=== PATIENT | male | born 1995 | race Caucasian/White ===

== ENCOUNTER 2024-04-13 14:03 | Emergency (ER) | payer OTHER, SELFPAY ==
[2024-04-13 14:28] VITALS: BP 127/88
[2024-04-13 14:50] LABS: % Basophils 0.5 % (0-2); % Eosinophils 1.9 % (0-6); % Immature Granulocytes 0.6 % (0-0.5); % Lymphocytes 6.3 % (20.5-51.1); % Monocytes 4.1 % (1.7-9.3); % Neutrophils 86.6 % (42.2-75.2); Absolute Basophils 0.1 10^3/uL (0-0.2); Absolute Eosinophils 0.4 10^3/uL (0-0.7); Absolute Immature Granulocytes 0.1 10^3/uL (0-0.05); Absolute Lymphocytes 1.2 10^3/uL (1.2-3.4); Absolute Monocytes 0.8 10^3/uL (0.1-0.6); Absolute Neutrophils 16.6 10^3/uL (1.4-6.5); Hematocrit 50.6 % (39.0-52.0); Hemoglobin 17.6 g/dL (13.0-18.0); Mean Corp Hgb Conc. 34.8 g/dL (33.0-37.0); Mean Corpuscular Volume 86.2 fL (80.0-94.0); Mean Platelet Volume 8.8 fL (7.4-10.4); Nucleated Red Blood Cells % 0 % (-); Platelet Count 282 10^3/uL (130-400); Red Blood Cell Count 5.87 10^6/uL (4.70-6.10); Red Cell Dist. Width 12.6 % (11.5-14.5); White Blood Cell Count 19.2 10^3/uL (4.8-10.8)
[2024-04-13 15:07] LABS: ALT (SGPT) 49 U/L (0-50); AST (SGOT) 37 U/L (17-59); Albumin 5.5 g/dl (3.5-5.0); Alkaline Phosphatase 104 U/L (38-126); Blood Urea Nitrogen 21 mg/dl (9-20); Calcium 10.1 mg/dl (8.4-10.2); Carbon Dioxide 20 mmol/L (22-30); Chloride 105 mmol/L (98-107); Glucose 134 mg/dl (70-99); Potassium 3.9 mmol/L (3.5-5.1); Sodium 141 mmol/L (135-145); Total Bilirubin 1.6 mg/dl (0.2-1.3); Total Protein 8.5 g/dl (6.3-8.2); eGFR > 60.00
--- NOTE | 2024-04-13 17:35 | ED.GENMED ---
History of Present Illness
General
Chief Complaint: Abdominal Symptoms
Source: patient
Exam Limitations: none
Time Seen by Provider: 04/13/24 17:21
History of Present Illness
History of Present Illness:
28-year-old male presents with onset of vomiting diarrhea and abdominal discomfort about an hour after taking Augmentin. He was prescribed Augmentin for a sinus infection. He took a dose of Augmentin last week on an empty stomach and had a similar
reaction. He figured it was from not eating prior to taking the medicine. He denies fevers or chills. No known sick contacts. He states since waiting in the waiting room the nausea has improved. He is now tolerating and sipping Gatorade with
water. No other complaints at this time
Phy Exam
Physical Exam
Physical Exam:
General: Well-developed male no acute respiratory distress
HEENT: Normocephalic atraumatic
Heart: Tachycardic but regular no murmurs
Lungs: Clear no wheeze
Abdomen is soft nontender nondistended
Extremities: No cyanosis
Course
Orders/Labs/Results
Orders:
Orders
04/13/24 14:35
CMP [Comprehensive Metabolic Panel] Urgent
Complete Blood Count/With Diff Urgent
04/13/24 17:35
0.9% Sodium Chloride 1000 ml [Nss] 1,000 ml IV BOLUS
Ondansetron Injectable [Zofran] 4 mg IV NOW STA
04/13/24 19:15
Norovirus by PCR Urgent
[facility] Source: Feces/Stool
Specimen Description:
Date Specimen was Collected: 04/13/24
Time Specimen was Collected: 19:12
STOOL [C difficile Antigen & Toxins] Urgent
[facility] Source: Feces/Stool
Specimen Description:
Date Specimen was Collected: 04/13/24
Time Specimen was Collected: 19:12
Stool Culture Urgent
[facility] Source: Feces/Stool
Specimen Description:
Date Specimen was Collected: 04/13/24
Time Specimen was Collected: 19:12
Abnormal Lab Results
04/13/24
14:35
WBC 19.2 H 10^3/uL
(4.8-10.8)
Abs Immat Gran (auto) 0.1 H 10^3/uL
(0-0.05)
Absolute Neuts (auto) 16.6 H 10^3/uL
(1.4-6.5)
Absolute Monos (auto) 0.8 H 10^3/uL
(0.1-0.6)
Immature Gran % 0.6 H %
(0-0.5)
Neutrophils % 86.6 H %
(42.2-75.2)
Lymphocytes % 6.3 L %
(20.5-51.1)
Carbon Dioxide 20 L mmol/L
(22-30)
BUN 21 H mg/dl
(9-20)
Glucose 134 H mg/dl
(70-99)
Total Bilirubin 1.6 H mg/dl
(0.2-1.3)
Total Protein 8.5 H g/dl
(6.3-8.2)
Albumin 5.5 H g/dl
(3.5-5.0)
04/13/24 14:35
04/13/24 14:35
Vital Signs
Initial and Last Documented VS:
Initial Vital Signs
Temp Pulse Resp BP Pulse Ox
97.9 F 107 19 127/88 99
04/13/24 14:28 04/13/24 14:28 04/13/24 14:28 04/13/24 14:28 04/13/24 14:28
Last Documented Vital Signs
Temp Pulse Resp BP Pulse Ox
97.9 F 94 16 127/88 98
04/13/24 14:28 04/13/24 18:00 04/13/24 18:00 04/13/24 14:28 04/13/24 18:00
MDM/Problems Addressed
Differential Diagnosis Includes:
Nausea vomiting diarrhea shortly after taking Augmentin. Question adverse reaction to the medication versus viral illness. Labs through triage demonstrate leukocytosis with a white count of 19.2. Patient still tachycardic on my exam I suspect
component of dehydration from the volume loss fluids ordered. Stool cultures ordered if patient able to provide a sample
*Critical Care Note
Total Time (30-74mins, 75-104mins- exclusive of procedures): Not Applicable
Update Note
Update Note:
Patient feeling much better after IV hydration. He was able to provide a stool sample. The studies are pending. Advised he is to stop Augmentin as this may be the source of his vomiting. I suspect his sinus issues are more viral or allergy
mediated but the symptoms have been going on for about 2 weeks. Did send prescription for doxycycline to his pharmacy to cover. He will decide to not take this unless his sinus symptoms worsen.
ED Attending Note
-
Portions of this chart may have been created with voice recognition software.� Occasional wrong word or��sound alike� substitutions may have occurred due to the inherent limitations of voice recognition software.
Discharge Plan
Departure
Patient Disposition: Home (Routine Discharge)
Date of Disposition: 04/13/24
Time of Disposition: 19:50
Patient with high blood pressure during this ER visit?: No
Discharge Problem:
Vomiting
Instructions: Nausea and Vomiting, Adult (DC)
Prescriptions:
New
doxycycline hyclate 100 mg capsule
100 mg PO BID Qty: 14 0RF
Referrals:
Steve Collins MD [Family Provider] -
Activity Restrictions/Additional Instructions:
Stay hydrated. Drink plenty clear liquids. Advance to a bland diet as tolerated. As discussed, this may be a reaction to the Augmentin you took. Stop the Augmentin. You may start doxycycline if your sinus symptoms persist. You should receive a
call if any of your stool studies are positive
Interventions
Interventions:
*Risk Screen - Suicide Last Done: 04/13/24 14:28
*General Assessment Last Done: 04/13/24 14:28
*Neglect/Abuse Screening Last Done: 04/13/24 14:28
ED- Fall Risk Assessment Last Done: 04/13/24 17:26
GD-Thcfum-Urlmfdywzv Assessment Last Done: 04/13/24 17:26
Discharge Date and Time
Print Language: SUDANESE
[2024-04-13] MEDS: NSS 1000 IV (17:56)
== END 2024-04-13 20:01 | disposition home or self-care (01) ==
LOC: EMR 14:03
PROVIDERS: Physician Assistant; EMERGENCY PHYSICIAN Emergency Medicine; FAMILY PHYSICIAN Internal Medicine
DX: R11.2 Nausea with vomiting, unspecified (principal); R19.7 Diarrhea, unspecified; R10.9 Unspecified abdominal pain
CPT/HCPCS: 96360; 99284; 80053; 85025; 87045; 87046; 87324; 87427; 87449; 87798